=== PATIENT | male | born 1965 | race Caucasian/White ===

== ENCOUNTER → 2018-11-04 08:35 | Emergency (ER) | payer BC ==
[~2018-11-04 08:35] MED LIST: Diltiazem DRIP* 100 MG/100 ML ADDV.BAG IV SCH; Diltiazem IV BAG* D5W Premix 125 MG/125 ML BAG IV SCH; Diltiazem IV push/loading dose 5 MG/ML 5 ML vial (25 mg) IV SLOW PU ONE; HYDROmorphone INJ1* 1 MG/ML SYRINGE IV SLOW PU ONE; Iodixanol* (CONTRAST) 320 MG/ML 100 ML SDV IV ONE; Ketorolac INJ* 30 MG/ML 1 ML VIAL IV ONE; Metoprolol Succinate XL TAB* 50 MG PO ONE; NS 0.9% 1000 ML** 1,000 ML IV ONE; Ondansetron INJ* 2 MG/ML VIAL IV ONE; Rivaroxaban TAB(*) 15 MG PO ONE; Tamsulosin CAP* 0.4 MG PO SCH
--- NOTE | 2018-11-04 08:55 | ED ---
GI/ HPI - HPI Summary HPI Summary: Patient is a 53 y/o M presenting to ED with complaints of right flank pain onsetting at 0400 today. Patient reports that he got out of bed, went to the bathroom, urinated, and returned to bed. 2-3 minutes after lying down, pain suddenly onset. He describes the pain as a constant, intense cramp. Pain radiates to abdomen and lower back at right. He rates the pain 9/10 in the room. Patient endorses nausea, "cold sweats" and, per triage, foul-smelling urine. He is unsure of fever. He denies Hx of kidney stones and denies similar prior episodes of Sx. He notes recent dental implants and states that he is currently taking amoxicillin. In the room, he reports a clindamycin allergy. Patient is a type 2 diabetic and he is currently on metformin. Home medications and allergies are reviewed. Female fusing machine feeder is present in the room. - History of Current Complaint Chief Complaint: EDFlankPain Time Seen by Provider: 11/04/18 08:49 Stated Complaint: POSS KIDNEY STONE PER PT Hx Obtained From: Patient Onset/Duration: Started Hours Ago, Still Present Timing: Constant, Lasting Hours Severity: Severe Current Severity: Severe Pain Intensity: 9 Location of Pain: Flank - right Pain Radiates to: Back - and abdomen Associated Signs and Symptoms: Positive: Nausea, Diaphoresis. Negative: Fever - on vitals, temp is 98.5 F - Allergy/Home Medications Allergies/Adverse Reactions: Allergies Allergy/AdvReac Type Severity Reaction Status Date / Time clindamycin Allergy GI Upset Verified 11/04/18 09:04 Home Medications: Home Medications Amoxicillin 500 mg PO TID 11/04/18 [History Confirmed 11/04/18] Metformin HCl [Metformin HCl ER] 1,000 mg PO BID 11/04/18 [History Confirmed ] PMH/Surg Hx/FS Hx/Imm Hx Endocrine/Hematology History: Reports: Hx Diabetes Cardiovascular History: Denies: Hx Hypertension History: Denies: Hx Dialysis, Hx Renal Disease - Surgical History Surgery Procedure, Year, and Place: tonsillectomy and hernia repair in childhood Infectious Disease History: No Infectious Disease History: Denies: Traveled Outside the [place] in Last 30 Days - Family History Known Family History: Negative: Renal Disease - Social History Alcohol Use: None Substance Use Type: Reports: None Smoking Status (MU): Former Smoker Review of Systems Positive: Skin Diaphoresis. Negative: Fever - on vitals, temp is 98.5 F Positive: Nausea Genitourinary: Other - positive - malodorous urine Positive: flank pain - right All Other Systems Reviewed And Are Negative: Yes Physical Exam - Summary Physical Exam Summary: Appearance: Well appearing, no pain distress Skin: warm, dry, reflects adequate perfusion Head/face: normal Eyes: EOMI, LEVY ENT: normal Neck: supple, non-tender Respiratory: CTA, breath sounds present Cardiovascular: RRR, pulses symmetrical Abdomen: tenderness over right flank, soft Musculoskeletal: normal, strength/ROM intact Neuro: normal, sensory motor intact, A&Ox3 Triage Information Reviewed: Yes Vital Signs On Initial Exam: Initial Vitals Temp Pulse Resp BP Pulse Ox 98.5 F 141 22 209/121 100 11/04/18 08:36 11/04/18 08:36 11/04/18 08:36 11/04/18 08:36 11/04/18 08:36 Vital Signs Reviewed: Yes Diagnostics - Vital Signs Vital Signs Temp Pulse Resp BP Pulse Ox 11/04/18 08:36 98.5 F 141 22 209/121 100 - Laboratory Result Diagrams: 11/04/18 10:11 11/04/18 10:11 Lab Statement: Any lab studies that have been ordered have been reviewed, and results considered in the medical decision making process. - Radiology CXR Radiology Interpretation Completed By: Radiologist Summary of Radiographic Findings: CXR IMPRESSION: No radiographic evidence for acute cardiopulmonary abnormality on this. portable chest x-ray. THIS REPORT WAS REVIEWED BY DR. MCCOLLUM. - CT ABD/PEL CT Interpretation Completed By: Radiologist Summary of CT Findings: 1. At the mid-level right ureter there is a 4 mm calcification with ipsilateral mild. hydronephrosis. 2. Hepatic steatosis. 3. Additional chronic and degenerative changes described in the body the report unlikely. to be directly related to the patient's current clinical presentation. THIS REPORT WAS REVIEWED BY DR. MCCOLLUM. CTA CHEST/THORAX CT Interpretation Completed By: Radiologist Summary of CT Findings: IMPRESSION: 1. There is possible filling defects involving the segmental branches of the right upper. pulmonary arteries that may be nonocclusive thrombus in the setting of a high clinical. suspicion for pulmonary embolism. The patient's body habitus degrades the image quality. 2. Pulmonary nodules as described above with Hounsfield units more consistent with. partially calcified granulomas. THIS REPORT WAS REVIEWED BY DR. MCCOLLUM. - EKG 0950 Cardiac Rate: Other Rate - EKG showed afib with RVR with rate of 144 BPM. EKG Rhythm: Atrial Fibrillation Summary of EKG Findings: EKG showed afib with RVR with rate of 144 BPM. 1422 Cardiac Rate: Other Rate - EKG showed afib with RVR with rate of 134 BPM. EKG Rhythm: Atrial Fibrillation Summary of EKG Findings: EKG showed afib with RVR with rate of 134 BPM. Re-Evaluation - Re-Evaluation First Eval Re-Evaluation Time: 14:14 Comment: Results of labs and tests were discussed with the patient. He denies having ever experienced chest pain and SOB. Patient is agreeable with admission. Second Eval Re-Evaluation Time: 15:52 Comment: JANICE Rodriguez had evaluated the patient. However, the patient wants to leave AMA. Extensively discussed the significance of his Sx and possible consequences of leaving AMA, including permanent disability and . Despite understanding the seriousness of his Sx, patient still desires to leave. PA Will sent prescriptions to pharmacy, patient left hospital AMA. GIGU Course/Dx - Course Course Of Treatment: Patient is a 53 y/o M presenting to ED with complaints of right flank pain onsetting at 0400 today. He describes the pain as a constant, intense cramp. Pain radiates to abdomen and lower back at right. He rates the pain 9/10 in the room. Patient endorses nausea, "cold sweats" and, per triage, foul-smelling urine. He denies Hx of kidney stones and denies similar prior episodes of Sx. He notes recent dental implants and states that he is currently taking amoxicillin. In the room, he reports a clindamycin allergy. Patient is a type 2 diabetic and he is currently on metformin. On physical exam, tenderness over right flank is noted. Bloodwork, UA obtained. CXR IMPRESSION: No radiographic evidence for acute cardiopulmonary abnormality on this. portable chest x-ray. EKG showed afib with RVR with rate of [address] ABD/PEL IMPRESSION: 1. At the mid-level right ureter there is a 4 mm calcification with ipsilateral mild. hydronephrosis. 2. Hepatic steatosis. 3. Additional chronic and degenerative changes described in the body the report unlikely. to be directly related to the patient's current clinical presentation. CTA CHEST/ THORAX IMPRESSION: 1. There is possible filling defects involving the segmental branches of the right upper. pulmonary arteries that may be nonocclusive thrombus in the setting of a high clinical. suspicion for pulmonary embolism. The patient's body habitus degrades the image quality. 2. Pulmonary nodules as described above with Hounsfield units more consistent with. partially calcified granulomas. EKG showed afib with RVR with rate of 134 BPM. During ED course, patient received fluids, Zofran 4 mg IV, toradol 30 mg IV, dilaudid 1 mg IV, diltiazem 20 mg IV SLOW PU and Diltiazem 100 mg in 100 mls @ 5 mls/ hr IV. Patient's case was discussed with Dr. Valencia, Dr. Valencia acceptrodolfo for admission. JANICE Rodriguez had evaluated the patient. However, the patient wants to leave AMA. Extensively discussed the significance of his Sx and possible consequences of leaving AMA, including permanent disability and . Despite understanding the seriousness of his Sx, patient still desires to leave. PA Will sent prescriptions to pharmacy, patient left hospital AMA. - Diagnoses Differential Diagnoses - Male: Dehydration - a fib with rvr, Renal Colic, Urinary Tract Infection Provider Diagnoses: Atrial fibrillation with RVR, Pulmonary embolism, Renal calculi - Physician Notifications Discussed Care Of Patient With: Mariano Valencia Time Discussed With Above Provider: 14:36 Instructed by Provider To: Other - Patient's case was discussed with Dr. Valencia , Dr. Valencia acceptrodolfo for admission. - Critical Care Time Critical Care Time: 30-74 min - 30 minutes CCT Discharge - Sign-Out/Discharge Documenting (check all that apply): Patient Departure - AMA Patient Received Moderate/Deep Sedation with Procedure: No - Discharge Plan Condition: Fair Disposition: AGAINST MEDICAL ADVICE Prescriptions: HYDROmorphone TAB* [Dilaudid TAB*] 2 mg PO Q6H PRN #20 tab MDD 4 tabs PRN Reason: Pain Rivaroxaban TAB(*) [Xarelto 15 mg(*)] 15 mg PO BID #41 tab Tamsulosin CAP* [Flomax CAP*] 0.4 mg PO DAILY #30 cap Patient Education Materials: A-fib (Atrial Fibrillation) (ED), Pulmonary Embolism (ED), Kidney Stones (ED) Referrals: Cruzito Rosa MD [Primary Care Provider] - 3 Days Bret Harmon MD [Medical Doctor] - 3 Days Additional Instructions: YOU ARE LEAVING THE EMERGENCY DEPARTMENT AGAINST MEDICAL ADVICE. PLEASE RETURN TO ED FOR ANY NEW OR WORSENING SYMPTOMS. FOLLOW-UP WITH YOUR PRIMARY CARE PHYSICIAN AND WITH UROLOGIST WITHIN THREE DAYS. - Billing Disposition and Condition Condition: FAIR Disposition: Against Medical Advice - Attestation Statements Document Initiated by Scribe: Yes Documenting Scribe: ALYSSA PAIGE Provider For Whom Scribe is Documenting (Include Credential): HARVEY MCCOLLUM MD Scribe Attestation: ALYSSA Keith, scribed for HARVEY MCCOLLUM MD on 11/04/18 at 1631. Scribe Documentation Reviewed: Yes Provider Attestation: The documentation as recorded by the ALYSSA saleem accurately reflects the service I personally performed and the decisions made by HARVEY mota MD Status of Scribe Document: Viewed
[2018-11-04 10:25] LABS: ABS Lymphocytes 0.9 10^3/ul (1.0-4.8); ABS Neutrophils 12.1 10^3/ul (1.5-7.7); Eosinophil % 0.2 %; Hematocrit 36 % (42-52); Hemoglobin 11.1 g/dL (14.0-18.0); Lymphocyte % 6.1 %; Mean Corpuscular HGB Conc 31 g/dL (31-36); Mean Corpuscular Hemoglobin 21 pg (27-31); Mean Platelet Volume 10.9 fL (7.4-10.4); Platelet Count 211 10^3/uL (150-450); Red Blood Count 5.25 10^6 /uL (4.18-5.48); Red Cell Distribution Width 18 % (10-15); White Blood Count 14.1 10^3/uL (3.5-10.8)
[2018-11-04 10:32] LABS: Activated Partial Thrombo Time 34.4 seconds (26.0-38.0); INR 1.08 (0.82-1.09)
[2018-11-04 10:45] LABS: Albumin 3.7 g/dL (3.2-5.2); Albumin/Globulin Ratio 1.1 (1-3); BUN/Creatinine Ratio 12.7 (8-20); C Reactive Protein 24.61 mg/L (<8.01); Calcium 9.4 mg/dL (8.6-10.3); EGFR African American 93.2 (>60); Globulin 3.4 g/dL (2-4); Potassium 3.5 mmol/L (3.5-5.0); Total Bilirubin 0.3 mg/dL (0.2-1.0); Total Protein 7.1 g/dL (6.4-8.9)
[2018-11-04 10:46] LABS: Troponin I 0.01 ng/mL (<0.04)
[2018-11-04 11:00] LABS: Mean Corpuscular Volume 69 fL (80-94)
[2018-11-04 11:01] LABS: Microcytosis 2+; Polychromasia 1+
[2018-11-04 12:51] LABS: TSH (Thyroid Stimulating Horm) 2.39 mcIU/mL (0.34-5.60)
[2018-11-04 13:15] LABS: Urine Appearance Clear; Urine Bacteria Absent (Absent); Urine Bilirubin Negative (Negative); Urine Blood 2+ (Negative); Urine Color Yellow; Urine Glucose 1+(50 mg/dL) (Negative); Urine Ketones Trace (Negative); Urine Nitrite Negative (Negative); Urine Protein Negative (Negative); Urine Red Blood Cell 3+(>10/hpf) (Absent); Urine Specific Gravity 1.009 (1.010-1.030); Urine Urobilinogen Negative (Negative); Urine White Blood Cell Trace(0-5/hpf) (Absent)
--- NOTE | 2018-11-04 16:11 | PN ---
Hospitalist Progress Note Date of Service: 11/04/18 Full Consultation to Follow We were asked to see the patient by the ED provider due to Nephrolithiasis, Afib with RVR, and Possible Small Pulmonary Emboli. Patient's only complaint is related to his nephrolithiasis. Patient has close follow up with a research professional and his PCP scheduled. Patient requests discharge from the ED, is willing to sign AMA paperwork per the request of the ED provider Patient will be provided with Anticoagulation, Metoprolol, Tamsulosin and Dilaudid for pain control.
[2018-11-04 17:08] VITALS: BP 187/110
--- NOTE | 2018-11-04 22:24 | CONS ---
CC: Dr. Johnny Price; Dr. Mariano Valencia; Dr. Cruzito Rosa; Dr. Ladd * CONSULTATION REPORT: DATE OF CONSULT: 11/04/18 - EMERGENCY DEPT CONSULTING PROVIDER: Dr. Johnny Price. MY ATTENDING WHILE IN THE HOSPITAL: Dr. Mariano Valencia. PRIMARY CARE PROVIDER: Dr. Crzuito Rosa. OUTPATIENT PATIENT FINANCIAL COUNSELOR: Dr. Ladd. CHIEF COMPLAINT: Right flank pain radiating to the groin. HISTORY OF PRESENT ILLNESS: Mr. Alejo is a 53-year-old male with past medical history significant for diabetes mellitus type 2, diabetic retinopathy and cervical and lumbar spinal disease who was feeling in his normal state of health until this morning when at approximately 4 a.m., he woke up, urinated and then had severe pain in his right back, which then shifted and started radiating down into his groin. This did not subside for approximately 4 hours and was not associated with fevers or chills. The patient had no chest pain or shortness of breath. The patient had some nausea without vomiting. The patient had no other abdominal pain, no diarrhea. The patient came to the emergency department. In the emergency department, the patient was found to have an elevated white blood cell count, elevated lactic acid, minimally elevated CRP and urinalysis with only blood and glucose in it. A CT scan with a 4-mm stone with minimal hydronephrosis on the right side. In he emergency department, the patient was found to have an elevated heart rate in the 140s to 150s. The patient had previously been to his doctor and had been prescribed metoprolol for an irregular heart rhythm and has a followup with a inside polisher. The patient was prescribed a diltiazem drip, but converted to normal sinus rhythm before diltiazem was able to be given. In the emergency department, the patient complaints of persistent right flank pain and no chest pain, shortness of breath, dizziness, nausea, or vomiting. Due to these findings, we were asked to evaluate the patient for admission to the hospital. PAST MEDICAL HISTORY: Diabetes mellitus type 2, diabetic retinopathy, lumbar spinal pathology, cervical spinal pathology due to work place injury. PAST SURGICAL HISTORY: Hernia repair as an , tonsillectomy, multiple dental procedures. MEDICATIONS: 1. Metformin 1000 mg p.o. b.i.d. 2. Amoxicillin 500 mg p.o. daily. ALLERGIES: CLINDAMYCIN. FAMILY HISTORY: The patient's father is alive, has AFib, hypertension and prostate cancer. The patient's mother is alive, has hyperthyroidism, status post resection and hypertension. SOCIAL HISTORY: The patient never smoked, drank or used illicit drugs. 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 The patient is and has 1 child. REVIEW OF SYSTEMS: A 14-point review of systems was reviewed and negative except as above in the HPI. Of note, the patient denied melena, hematochezia, upper abdominal pain, reflux. PHYSICAL EXAM: General: The patient is a 53-year-old male, who appears his stated age, sitting comfortably in the bed, in no acute distress. Vital Signs: At the time of evaluation, temperature 98.5, pulse rate 92, respiratory rate 20, oxygen saturation 99% on room air, blood pressure 190/112. HEENT: Head: Normocephalic, atraumatic. Sclerae anicteric. No conjunctival injection. Nasal mucosa moist. Oral mucosa moist. No pharyngeal erythema, discharge, or exudate. Neck: Supple, nontender. No lymphadenopathy. No carotid bruits auscultated. No JVD. Cardiac: Regular rate and rhythm. No clicks, murmurs, gallops, or rubs. Pulses are 2+ in the dorsalis pedis, posterior tibialis, and radial areas. No bilateral lower extremity edema. No bilateral calves tenderness. Respiratory: Clear to auscultation bilaterally. No wheezes, rales , or rhonchi. Good air exchange bilaterally. Abdomen: Soft, nontender, nondistended. Bowel sounds present and normoactive in all 4 quadrants. No hepatosplenomegaly. No abdominal bruits auscultated. No hepatojugular reflux. Genitourinary: Right-sided CVA tenderness. Skin: Clean, dry and intact. No rash. Neuro: Cranial nerves II through XII intact. No focal deficits. Alert and oriented x3. Psychiatric: Pleasant and cooperative. DIAGNOSTIC STUDIES/LAB DATA: Laboratory data: White blood cell count 14.1, hemoglobin 11.1, hematocrit 36, MCV 69, MCH 21, RDW 18 with polychromasia, anisocytosis, and microcytosis. INR 1.08, aPTT 34.7. Sodium 137, potassium 3.5 , chloride 102, carbon dioxide 26, anion gap 6, BUN 13, creatinine 1.02, glucose 215, lactic acid 2.6, calcium 9.4, bilirubin 0.3, AST 22, ALT 27, alkaline phosphatase 66. Troponin 0.01. CRP 24.61, BNP 59. Protein 7.1, albumin 3.7, globulin 3.4, lipase 27, TSH 2.39. Urine shows trace ketones, 2+ blood, 3+ red blood cells, 1+ glucose. Studies: EKG shows atrial fibrillation, rate of 144, QTc of 545, T-wave inversions in the lateral leads, interventricular conduction delay. Repeat EKG shows biphasic T-waves in lateral leads. No change in conduction delay. Rate of 134, QTc of 426. Chest CTA read as there is possible filling defect involving the segmental branches of the right upper lobe pulmonary arteries may be nonocclusive thrombus in the setting of high clinical suspicion pulmonary embolism. The patient's body habitus limits examination. Pulmonary nodules are described above with Hounsfield units more consistent with calcified granulomas. Chest x-ray read as no radiographic evidence for acute cardiopulmonary abnormality in this portable chest x-ray. Abdomen and pelvis CT read as at the mid level of right ureter, there is a 4-mm calcification with mild amount of hydronephrosis. ASSESSMENT AND PLAN: Impression: Mr. Alejo is a 53-year-old male with past medical history significant for diabetes and diabetic retinopathy, who presented to the emergency department with 5 hours of right-sided flank pain radiating to his groin. The patient in the emergency department was found to be tachycardic with a regular rhythm and was found to have atrial fibrillation with rapid ventricular response, which is spontaneously converted while in the emergency department. The patient was also found to be iron deficient and to have a kidney stone. The patient is refusing admission to the hospital and will be discharged from the emergency department against medical advice. 1. Atrial fibrillation. The patient has atrial fibrillation. The patient has risk factors for atrial fibrillation, mainly his weight. The patient has never had an echo to his knowledge. The patient does have a close followup with Cardiology. The patient was offered admission to the hospital, which would expedite echocardiogram and monitoring for recurrence of atrial fibrillation. The patient refused this. The risks and benefits of anticoagulation were discussed with the patient and he is at this time also refusing anticoagulation. His CHADS-VASc score is 1. Anticoagulation was recommended in relation with his iron deficiency anemia and possible GI ulcer was discussed with him and at this time, he is refusing anticoagulation with Xarelto. The patient was prescribed metoprolol succinate 50 mg p.o. daily, which he will receive first dose of in the emergency department and then he will pickup his prescription and take this daily going forward for rate control and hopeful mild rhythm control. 2. Possible subsegmental pulmonary embolism. The patient has equivocal pulmonary embolism. He has no symptoms of pulmonary embolism. The patient is at this time refusing anticoagulation given the low clinical suspicion for pulmonary embolism as well as concern with iron deficiency anemia for provoking bleeding. The patient is again refusing anticoagulation at this time for both atrial fibrillation and pulmonary embolism. The patient's sPESI score is 0 and he is at low risk for complication from pulmonary embolism. The patient has no clinical signs of deep vein thrombosis. 3. Nephrolithiasis. The patient has a 4-mm kidney stone on his right side with mild hydronephrosis. The patient has significant pain, which is improving with Dilaudid. The patient will be prescribed tamsulosin to facilitate stone passage. The patient is again refusing admission. The patient will have Dilaudid p.o. prescribed for pain control. The patient's I-STOP was checked and he does not have any recent opiate prescriptions. Patient has no renal dysfunction from his ureteral stone. 4. Diabetes mellitus, type 2. Continue the patient's metformin. 5. Iron deficiency anemia. The patient has microcytic anemia with a hemoglobin of 11. The patient has never had a screening colonoscopy. It has been discussed with the patient that he should have a diagnostic endoscopy and colonoscopy to look for slowly bleeding GI lesions, ulcers, or malignancies. The patient states understanding and will discuss this with his primary care provider at their followup appointment 6. Disposition: The patient will be discharged against medical advice from the emergency department. TIME SPENT: Approximately 75 minutes was spent on this consultation, 30 of which was spent [id number] with the patient, obtaining history and physical, and discussing the treatment plan. This plan was discussed with my attending Dr. Mariano Valencia, and he is in agreement. JANICE MURRAY [id number]/[place] #: [id number] DEJON
== END | disposition left against medical advice (07) ==
LOC: ED 08:35
DX: I48.91 Unspecified atrial fibrillation (principal); I48.92 Unspecified atrial flutter; N13.2 Hydronephrosis with renal and ureteral calculous obstruction; I26.99 Other pulmonary embolism without acute cor pulmonale; R91.1 Solitary pulmonary nodule; K76.0 Fatty (change of) liver, not elsewhere classified; R11.0 Nausea; R61 Generalized hyperhidrosis; E11.319 Type 2 diabetes mellitus with unspecified diabetic retinopathy without macular edema; Z79.84 Long term (current) use of oral hypoglycemic drugs; Z88.1 Allergy status to other antibiotic agents; Z87.891 Personal history of nicotine dependence
CPT/HCPCS: 36415; 71045; 71275; 74176; 80053; 81003; 81015; 83036; 83605; 83690; 83880; 84443; 84484; 85025; 85060; 85610; 85730; 86140; 87086; 93005; 96361; 96374; 96375; 99284; J1170; J1885; J2405; J3490; Q9967

== ENCOUNTER 2021-02-28 20:24 | Observation (INO) ==
[2021-02-28] MEDS ORDERED: NS 0.9% 1000 ml BAG 1,000 ML IV ONE (20:47)
[2021-02-28 21:04] LABS: ABS Basophils 0.1 10^3/ul (0-0.2); ABS Eosinophils 0.3 10^3/ul (0-0.6); ABS Lymphocytes 1.6 10^3/ul (1.0-4.8); ABS Monocytes 0.7 10^3/ul (0-0.8); ABS Neutrophils 6.4 10^3/ul (1.5-7.7); Eosinophil % 3.6 %; Hematocrit 41 % (42-52); Hemoglobin 13.3 g/dL (14.0-18.0); Lymphocyte % 17.7 %; Mean Corpuscular HGB Conc 32 g/dL (31-36); Mean Corpuscular Hemoglobin 28 pg (27-31); Mean Corpuscular Volume 86 fL (80-94); Mean Platelet Volume 10.7 fL (7.4-10.4); Platelet Count 154 10^3/uL (150-450); Red Blood Count 4.78 10^6 /uL (4.18-5.48); Red Cell Distribution Width 15 % (10-15); White Blood Count 9.2 10^3/uL (3.5-10.8)
[2021-02-28 21:21] LABS: Albumin/Globulin Ratio 1.3 (1-3); Calcium 10.7 mg/dL (8.6-10.3); Globulin 3.2 g/dL (2-4); HDL Cholesterol 34.9 mg/dL; Potassium 3.8 mmol/L (3.5-5.0); Total Bilirubin 0.3 mg/dL (0.2-1.0); Total Protein 7.2 g/dL (6.4-8.9)
[2021-02-28 21:22] LABS: Troponin I 0.01 ng/mL (<0.03)
[2021-02-28 22:12] LABS: Activated Partial Thrombo Time 35.8 seconds (26.0-38.0); INR 1.17 (0.86-1.15)
[2021-03-01] MEDS ORDERED: Ondansetron 4 mg VIAL 2 MG/ML 2 ml VIAL IV PRN (00:07)
[2021-03-01] MEDS ORDERED: Dextrose 50% Syringe 50 ml 25 GM/50 ML SYRINGE IV PUSH PRN (00:18)
[2021-03-01 00:49] LABS: Magnesium 1.5 mg/dL (1.9-2.7)
[2021-03-01] MEDS ORDERED: Magnesium Sulf 4 GM/100 ML IV 4,000 MG/100 ML BAG IVPB ONE (01:25)
[2021-03-01 01:47] LABS: Rapid COVID-19 Molecular Undetected (Undetected)
[2021-03-01 08:32] LABS: Calcium 10.6 mg/dL (8.6-10.3); Potassium 3.5 mmol/L (3.5-5.0)
[2021-03-01 08:38] LABS: HDL Cholesterol 30.5 mg/dL
[2021-03-01] MEDS: Potassium Chlor 20 meq TAB.ER PO SCH (10:18)
[2021-03-01] MEDS ORDERED: Perflutren Lipid Microsphere 3 ML VIAL ONE (10:47)
[2021-03-02] MEDS: Potassium Chlor 20 meq TAB.ER PO SCH (10:47)
[2021-03-02 17:04] VITALS: BP 136/59
== END 2021-03-02 19:20 | disposition home or self-care (01) ==
LOC: EDHOLD 20:24 → ED 20:24 → SUATTDRO 03-01 00:07 → MEDTELE 03-01 02:32
PROVIDERS: ADMIT Student in an Organized Health Care Education/Training Program; ATTEND Internal Medicine